=== PATIENT | male | born 1965 | race African-American/Black ===

== ENCOUNTER 2020-06-09 08:44 | Emergency (ER) | payer OTHER ==
[2020-06-09 09:01] VITALS: BP 147/91; PULSE 64; TEMP 97.8; BMI 25.1
== END 2020-06-09 11:10 | disposition home or self-care (01) ==
LOC: JER 08:44
DX: H53.8 Other visual disturbances (principal)
CPT/HCPCS: 70450-TC; 99284-25

== ENCOUNTER 2020-06-09 15:06 | Emergency (ER) | payer OTHER ==
[2020-06-09 15:19] VITALS: BP 126/87; PULSE 94; BMI 29.2
[2020-06-09 15:52] VITALS: TEMP 97.9
[2020-06-09 18:51] LABS: BASO % 1.1 % (0-2.0); EOS % 1.7 % (0-4.5); HEMATOCRIT 40.9 % (35.4-49); HEMOGLOBIN 13.3 GM/dL (11.7-16.9); LYMPH % 31.9 % (8-40); MCH 28.9 pg (25.7-33.7); MCHC 32.5 g/dl (32.0-35.9); MEAN PLT VOLUME 8.2 fl (7.5-11.1); MONO % 11.3 % (3.8-10.2); PLATELET COUNT 367 K/MM3 (134-434); RDW 13.8 % (11.9-15.9); WHITE BLOOD COUNT 11.3 K/mm3 (4.0-10.0)
[2020-06-09 19:15] LABS: POTASSIUM 4.1 mmol/L (3.5-5.1)
[2020-06-09 19:16] LABS: CALCIUM 8.9 mg/dL (8.5-10.1)
[2020-06-09 19:17] LABS: BLOOD UREA NITROGEN 13.4 mg/dL (7-18)
[2020-06-09 19:19] LABS: CREATININE 1.2 mg/dL (0.55-1.3)
== END 2020-06-09 22:35 | disposition home or self-care (01) ==
LOC: JER 15:06
DX: H53.8 Other visual disturbances (principal)
CPT/HCPCS: 36415; 70552-TC; 80048; 85025; 99285-25; A9579

== ENCOUNTER 2022-12-06 04:59 | Day surgery (SDC) | payer OTHER ==
[2022-12-04 11:44] VITALS: BMI 26.6
[2022-12-06 10:26] VITALS: TEMP 97.2
[2022-12-06 10:35] VITALS: RESP 15
[2022-12-06 10:56] VITALS: BP 146/94; PULSE 57
== END 2022-12-06 11:15 | disposition home or self-care (01) ==
LOC: JASU-ENDO 04:59
PROVIDERS: ATTEND Internal Medicine Gastroenterology
PROC: 0DBL8ZX Excision of Transverse Colon, Via Natural or Artificial Opening Endoscopic, Diagnostic (ICD-10-PCS; 2022-12-06)
PROC: 0DBN8ZX Excision of Sigmoid Colon, Via Natural or Artificial Opening Endoscopic, Diagnostic (ICD-10-PCS; principal; 2022-12-06 09:15)
DX: Z12.11 Encounter for screening for malignant neoplasm of colon (principal); D12.5 Benign neoplasm of sigmoid colon; D12.3 Benign neoplasm of transverse colon; K64.8 Other hemorrhoids
CPT/HCPCS: 88305-TC